=== PATIENT | female | born 1995 | race American Indian/Alaskan Native ===

== ENCOUNTER 2017-08-12 18:56 | Emergency (ER) | payer SELFPAY ==
[2017-08-12] MEDS ORDERED: MOTRIN ONE (19:35)
[2017-08-12] MEDS ORDERED: MOTRIN PO ONE (19:42)
[2017-08-12 21:26] LABS: Basophils % (Auto) 0.3 % (0.0-1.8); Hematocrit 29.2 % (30.3-42.9); Hemoglobin 9.2 gm/dl (10.1-14.3); Lymphocytes # (Auto) 1.3 K/mm3 (1.2-5.4); Lymphocytes % (Auto) 8.8 % (13.4-35.0); Mean Corpuscular HGB Conc 32 % (30-34); Mean Corpuscular Volume 74 fl (79-97); Monocytes # (Auto) 1.1 K/mm3 (0.0-0.8); Monocytes % (Auto) 7.8 % (0.0-7.3); Platelet Count 269 K/mm3 (140-440); Red Blood Count 3.93 M/mm3 (3.65-5.03)
[2017-08-12 21:33] LABS: BUN/Creatinine Ratio 12; Blood Urea Nitrogen 7 mg/dL (7-17); Calcium 8.7 mg/dL (8.4-10.2); Hemolysis Index 33
--- NOTE | 2017-08-12 21:37 | Emergency Department Report ---
ED Fever HPI - General Chief Complaint: Fever Stated Complaint: FEVER Time Seen by Provider: 08/12/17 20:02 Source: patient - History of Present Illness Initial Comments: This is a 21-year-old female with no prior medical condition who presents to ED complaining of fever and body aches for the past. Week. Patient states she fell and apparently today he has been taking TheraFlu with no relief. Patient states that she has loss of appetite does really eat as much pain she states last menstrual period was 07/23/2017. She denies vaginal discharge, vaginal bleed of any kind. Patient denies any sick contacts, cough, runny nose, throat pain, nausea vomiting, diarrhea, abdominal pain. Timing/Duration: week (1) Fever Therapy [employer]SOLE [employer]ACHINE: cold remedies, Tylenol Associated Symptoms: muscle aches. denies: abdominal pain, chest pain, confusion, cough, headache, nausea/vomiting, rash, stiff neck ED Review of Systems ROS: Stated complaint: FEVER Other details as noted in HPI Constitutional: denies: chills, fever Eyes: denies: eye pain, eye discharge, vision change ENT: denies: ear pain, throat pain Respiratory: denies: cough, shortness of breath, wheezing Cardiovascular: denies: chest pain, palpitations Endocrine: no symptoms reported Gastrointestinal: denies: abdominal pain, nausea, diarrhea Genitourinary: denies: urgency, dysuria, discharge Musculoskeletal: denies: back pain, joint swelling, arthralgia Skin: denies: rash, lesions Neurological: denies: headache, weakness, paresthesias Psychiatric: denies: anxiety, depression Hematological/Lymphatic: denies: easy bleeding, easy bruising ED Past Medical Hx - Past Medical History Previous Medical History?: No - Surgical History Past Surgical History?: Yes Additional Surgical History: c section - Social History Smoking Status: Current Every Day Smoker Substance Use Type: Marijuana - Medications Home Medications: Home Medications Medication Instructions Recorded Confirmed Last Taken Type Ibuprofen [Motrin] 800 mg PO Q8HR PRN #30 tablet 08/12/17 Unknown Rx ED Physical Exam - General Limitations: No Limitations General appearance: alert, in no apparent distress - Head Head exam: Present: atraumatic, normocephalic - Eye Eye exam: Present: normal appearance, PERRL - ENT ENT exam: Present: mucous membranes moist - Neck Neck exam: Present: normal inspection - Respiratory Respiratory exam: Present: normal lung sounds bilaterally. Absent: respiratory distress - Cardiovascular Cardiovascular Exam: Present: regular rate, normal rhythm. Absent: systolic murmur, diastolic murmur, rubs, gallop - GI/Abdominal GI/Abdominal exam: Present: soft, normal bowel sounds - Extremities Exam Extremities exam: Present: normal inspection - Back Exam Back exam: Present: normal inspection, full ROM - Neurological Exam Neurological exam: Present: alert, oriented X3 - Psychiatric Psychiatric exam: Present: normal affect, normal mood - Skin Skin exam: Present: warm, dry, intact, normal color. Absent: rash ED Course Vital Signs 08/12/17 08/12/17 19:29 19:37 Temperature 102.0 F H 102.0 F H Pulse Rate 122 H 122 H Respiratory 18 17 Rate Blood Pressure 122/65 122/65 O2 Sat by Pulse 100 100 Oximetry ED Medical Decision Making - Lab Data Result diagrams: 08/12/17 21:13 08/12/17 21:13 Laboratory Last Values WBC 14.2 K/mm3 (4.5-11.0) H 08/12/17 21:13 RBC 3.93 M/mm3 (3.65-5.03) 08/12/17 21:13 Hgb 9.2 gm/dl (10.1-14.3) L 08/12/17 21:13 Hct 29.2 % (30.3-42.9) L 08/12/17 21:13 MCV 74 fl (79-97) L 08/12/17 21:13 MCH 24 pg (28-32) L 08/12/17 21:13 MCHC 32 % (30-34) 08/12/17 21:13 RDW 21.4 % (13.2-15.2) H 08/12/17 21:13 Plt Count 269 K/mm3 (140-440) 08/12/17 21:13 Lymph % (Auto) 8.8 % (13.4-35.0) L 08/12/17 21:13 [place] % (Auto) 7.8 % (0.0-7.3) H 08/12/17 21:13 Eos % (Auto) 0.0 % (0.0-4.3) 08/12/17 21:13 Baso % (Auto) 0.3 % (0.0-1.8) 08/12/17 21:13 Lymph # 1.3 K/mm3 (1.2-5.4) 08/12/17 21:13 [place] # 1.1 K/mm3 (0.0-0.8) H 08/12/17 21:13 Eos # 0.0 K/mm3 (0.0-0.4) 08/12/17 21:13 Baso # 0.0 K/mm3 (0.0-0.1) 08/12/17 21:13 Seg Neutrophils % 83.1 % (40.0-70.0) H 08/12/17 21:13 Seg Neutrophils # 11.8 K/mm3 (1.8-7.7) H 08/12/17 21:13 Sodium 135 mmol/L (137-145) L 08/12/17 21:13 Potassium 3.3 mmol/L (3.6-5.0) L 08/12/17 21:13 Chloride 93.3 mmol/L (98-107) L 08/12/17 21:13 Carbon Dioxide 21 mmol/L (22-30) L 08/12/17 21:13 Anion Gap 24 mmol/L 08/12/17 21:13 BUN 7 mg/dL (7-17) 08/12/17 21:13 Creatinine 0.6 mg/dL (0.7-1.2) L 08/12/17 21:13 Estimated GFR > 60 ml/min 08/12/17 21:13 BUN/Creatinine Ratio 12 % 08/12/17 21:13 Glucose 102 mg/dL (65-100) H 08/12/17 21:13 Lactic Acid 0.90 mmol/L (0.7-2.0) 08/12/17 21:42 Calcium 8.7 mg/dL (8.4-10.2) 08/12/17 21:13 Urine Color Yellow (Yellow) 08/12/17 20:59 Urine Turbidity Clear (Clear) 08/12/17 20:59 Urine pH 5.0 (5.0-7.0) 08/12/17 20:59 Ur Specific [place] 1.032 (1.003-1.030) H 08/12/17 20:59 Urine Protein 30 mg/dl mg/dL (Negative) 02/25/18 20:59 Urine Glucose (UA) Neg mg/dL (Negative) 08/12/17 20:59 Urine Ketones Tr mg/dL (Negative) 08/12/17 20:59 Urine Blood Neg (Negative) 08/12/17 20:59 Urine Nitrite Neg (Negative) 08/12/17 20:59 Urine Bilirubin Neg (Negative) 08/12/17 20:59 Urine Urobilinogen 4.0 mg/dL (<2.0) 08/12/17 20:59 Ur Leukocyte Esterase Tr (Negative) 08/12/17 20:59 Urine WBC (Auto) 12.0 /HPF (0.0-6.0) H 08/12/17 20:59 Urine RBC (Auto) 10.0 /HPF (0.0-6.0) 08/12/17 20:59 U Epithel Cells (Auto) 28.0 /HPF (0-13.0) H 08/12/17 20:59 Urine Mucus 2+ /HPF 08/12/17 20:59 Urine HCG, Qual Negative (Negative) 08/12/17 20:59 - Radiology Data Radiology results: report reviewed, image reviewed FINAL REPORT PROCEDURE: XR CHEST ROUTINE 2V TECHNIQUE: PA and lateral chest radiographs were obtained. CPT 33871 HISTORY: fever/malaise COMPARISON: No prior studies are available for comparison. FINDINGS: Heart: Normal. Mediastinum/Vessels: Normal. Lungs/Pleural space: Normal. Bony thorax: No acute osseous abnormality. Other: IMPRESSION: Negative exam.. Transcribed By: DFN Dictated By: ROSEY WEBER MD Electronically Authenticated By: ROSEY WEBER MD Signed Date/Time: 08/12/171816 - Medical Decision Making 19-year-old female presents for fever of unknown region ED course: Patient received 1 L of fluids, Motrin in ED CBC, BMP, lactic acid, urine presents to test, urinalysis and chest x-ray ordered The elevated white count, BMP shows mild saturation was less right, urinalysis within normal limits, chest x-ray normal she reported blood I discussed result findings with patient. Patient states she knows she is anemic and was given iron prescriptions which she takes regularly. Fever reduced in ED. I discussed the patient to follow up with her primary care physician. I discussed the fashion that sometimes agitation can cause fever and elevated pulse rate. Vital signs are normal ,she is no acute distress, she is sitting comfortably in ED ,she has no neuro deficit, she is alert and oriented 3 Critical care attestation.: If time is entered above; I have spent that time in minutes in the direct care of this critically ill patient, excluding procedure time. ED Disposition Clinical Impression: Dehydration fever Anemia Qualifiers: Anemia type: iron deficiency Fever Qualifiers: Fever type: unspecified Qualified Code(s): R50.9 - Fever, unspecified Disposition: DC- TO HOME OR SELFCARE Is pt being admited?: No Does the pt Need Aspirin: No Condition: Stable Instructions: Fever in Adults (ED), Dehydration (ED) Additional Instructions: Make sure to follow up with the primary care physician as discussed. Take your medications as you've been prescribed. Continue to take your iron pills daily If you have any worsening symptoms or develop new symptoms please return to ED immediately. Prescriptions: Ibuprofen [Motrin] 800 mg PO Q8HR PRN #30 tablet PRN Reason: Pain Referrals: MARIANELA JENNINGS MD [Primary Care Provider] - 3-5 Days CONCHITA CHAVEZ MD [Referring] - 3-5 Days LIA TO MD [Referring] - 3-5 Days [facility] [Outside] - 3-5 Days [facility] [Outside] - 3-5 Days Forms: Work/School Release Form(ED) Time of Disposition: 22:34
[2017-08-12 21:42] LABS: Mean Corpuscular Hemoglobin 24 pg (28-32); Red Cell Distribution Width 21.4 % (13.2-15.2)
[2017-08-12 21:44] LABS: Bilirubin,Urine NEG (Negative); Blood,Urine NEG (Negative); Color,Urine Yellow (Yellow); Mucus,Urine 2+ /HPF
[2017-08-12 21:52] LABS: HCG Qualitative,Urine Negative (Negative)
[2017-08-12] MEDS ORDERED: NACL 0.9% 1000 ML 1,000 ML IV ONE (21:59)
--- NOTE | 2017-08-12 22:21 | XRay Report ---
FINAL REPORT PROCEDURE: XR CHEST ROUTINE 2V TECHNIQUE: PA and lateral chest radiographs were obtained. CPT 99919 HISTORY: fever/malaise COMPARISON: No prior studies are available for comparison. FINDINGS: Heart: Normal. Mediastinum/Vessels: Normal. Lungs/Pleural space: Normal. Bony thorax: No acute osseous abnormality. Other: IMPRESSION: Negative exam..
[2017-08-12 22:38] VITALS: BP 105/53
== END 2017-08-12 23:18 | disposition home or self-care (01) ==
LOC: ED 18:56
DX: E86.0 Dehydration (principal); D64.9 Anemia, unspecified; F17.200 Nicotine dependence, unspecified, uncomplicated; F12.10 Cannabis abuse, uncomplicated
CPT/HCPCS: 36415; 71046; 80048; 81001; 81025; 82140; 85025; 96360; 99284; J7030

== ENCOUNTER 2019-03-02 19:03 | Outpatient (CLI) | payer OTHER, MEDICAID ==
[2019-03-02 19:19] VITALS: BP 105/59
[2019-03-02] MEDS ORDERED: LACTATED RINGERS 1,000 ML IV ONE (20:03)
[2019-03-02] MEDS ORDERED: TYLENOL PO ONE (20:03)
--- NOTE | 2019-03-02 21:22 | Ultrasound Report ---
US OB limited INDICATION / CLINICAL INFORMATION: Rule out Abruption. Pelvic pain COMPARISON: None available. FINDINGS: Single intrauterine is seen in cephalic presentation. heart rate is 147.. There is a rate 1 posterior fundal placenta. IMPRESSION: 1. Single intrauterine in cephalic presentation with heart rate of 147. 2. Posterior fundal placenta appears unremarkable. Signer Name: Sebastian Singh MD Signed: 03/02/2019 9:18 PM Workstation Name: [id number]
== END 2019-03-02 22:20 | disposition short-term general hospital (02) ==
LOC: TRG 19:03
PROVIDERS: ATTEND Obstetrics & Gynecology
DX: O26.892 Other specified pregnancy related conditions, second trimester (principal); R10.31 Right lower quadrant pain; M54.9 Dorsalgia, unspecified; M25.522 Pain in left elbow; V49.9XXA Car occupant (driver) (passenger) injured in unspecified traffic accident, initial encounter; Z3A.22 22 weeks gestation of pregnancy; Z87.891 Personal history of nicotine dependence; Y93.89 Activity, other specified; Y92.89 Other specified places as the place of occurrence of the external cause; Y99.8 Other external cause status
CPT/HCPCS: 59025; 76815; 96360; J7120

== ENCOUNTER 2019-03-02 22:27 | Emergency (ER) | payer OTHER, MEDICAID ==
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
[2019-03-03 01:46] VITALS: BP 105/58
== END 2019-03-03 01:46 | disposition home or self-care (01) ==
LOC: ED 22:27
DX: O9A.212 Injury, poisoning and certain other consequences of external causes complicating pregnancy, second trimester (principal); S43.402A Unspecified sprain of left shoulder joint, initial encounter; S39.012A Strain of muscle, fascia and tendon of lower back, initial encounter; S16.1XXA Strain of muscle, fascia and tendon at neck level, initial encounter; S50.02XA Contusion of left elbow, initial encounter; Z3A.22 22 weeks gestation of pregnancy; V49.9XXA Car occupant (driver) (passenger) injured in unspecified traffic accident, initial encounter; Y93.89 Activity, other specified; Y92.410 Unspecified street and highway as the place of occurrence of the external cause; Y99.8 Other external cause status

== ENCOUNTER 2019-03-03 19:32 | Outpatient (CLI) | payer OTHER, MEDICAID ==
[2019-03-03] MEDS ORDERED: LACTATED RINGERS 1,000 ML IV ONE (19:56)
[2019-03-03 20:35] LABS: Bilirubin,Urine NEG (Negative); Blood,Urine NEG (Negative); Color,Urine Yellow (Yellow); Mucus,Urine FEW /HPF; Protein,Urine <15 mg/dL mg/dL (Negative); Urobilinogen,Urine < 2.0 mg/dL (<2.0); WBC,Urine < 1.0 /HPF (0.0-6.0)
[2019-03-03 20:46] LABS: Amphetamine Screen,Urine PRESUMPTIVE NEGATIVE; Benzodiazepines Screen,Urine PRESUMPTIVE NEGATIVE; Cannabinoid Screen,Urine PRESUMPTIVE NEGATIVE; Cocaine Screen,Urine PRESUMPTIVE NEGATIVE; Methadone Screen,Urine PRESUMPTIVE NEGATIVE; Opiate Screen,Urine PRESUMPTIVE NEGATIVE
[2019-03-03 20:53] VITALS: BP 101/58
== END 2019-03-03 21:08 | disposition home or self-care (01) ==
LOC: TRG 19:32
PROVIDERS: ATTEND Obstetrics & Gynecology
DX: O36.8120 Decreased fetal movements, second trimester, not applicable or unspecified (principal); Z3A.22 22 weeks gestation of pregnancy
CPT/HCPCS: 80307; 81001

== ENCOUNTER 2019-04-17 13:22 | Outpatient (CLI) | payer OTHER, MEDICAID ==
[2019-04-17 13:52] VITALS: BP 106/58
[2019-04-17] MEDS ORDERED: LACTATED RINGERS 1,000 ML IV SCH (14:00)
[2019-04-17 14:27] LABS: Bacteria,Urine 1+ /HPF (Negative); Mucus,Urine 2+ /HPF
[2019-04-17 14:28] LABS: Bilirubin,Urine NEG (Negative); Blood,Urine NEG (Negative); Color,Urine Yellow (Yellow)
== END 2019-04-17 16:40 | disposition home or self-care (01) ==
LOC: TRG 13:22
PROVIDERS: ATTEND Obstetrics & Gynecology
DX: O26.893 Other specified pregnancy related conditions, third trimester (principal); M54.5 Low back pain; O60.03 Preterm labor without delivery, third trimester; Z3A.29 29 weeks gestation of pregnancy
CPT/HCPCS: 59025; 81001; 96360; 96361; J7120

== ENCOUNTER 2020-05-01 09:42 | Emergency (ER) | payer MEDICAID, OTHER ==
[2020-05-01 09:56] VITALS: BP 121/71
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
== END 2020-05-01 12:30 | disposition left against medical advice (07) ==
LOC: ED 09:42
DX: M54.2 Cervicalgia (principal); Z53.21 Procedure and treatment not carried out due to patient leaving prior to being seen by health care provider

== ENCOUNTER 2020-07-17 00:34 | Emergency (ER) | payer MEDICAID ==
[2020-07-17] MEDS ORDERED: SODIUM CHLORIDE 0.9% 1000 ML 1,000 ML IV ONE (01:17)
[2020-07-17] MEDS ORDERED: ONDANSETRON 4 MG/2 ML INJ IV ONE (01:17)
[2020-07-17] MEDS ORDERED: FAMOTIDINE 20 MG/2 ML INJ IV ONE (01:17)
[2020-07-17] MEDS ORDERED: MORPHINE 2 MG/1 ML INJ IV ONE (01:18)
[2020-07-17] MEDS ORDERED: DICYCLOMINE 20 MG/2 ML INJ IM ONE (01:18)
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
[2020-07-17 02:37] LABS: Alanine Aminotransferase 13 units/L (7-56); Albumin 4.9 g/dL (3.9-5); Blood Urea Nitrogen 12 mg/dL (7-17); Calcium 10.4 mg/dL (8.4-10.2); Hemolysis Index 17
[2020-07-17 02:45] LABS: Hematocrit 42.4 % (30.3-42.9); Hemoglobin 14.5 gm/dl (10.1-14.3); Mean Corpuscular HGB Conc 34 % (30-34); Mean Corpuscular Volume 90 fl (79-97); Platelet Count 230 K/mm3 (140-440)
[2020-07-17 02:50] LABS: BUN/Creatinine Ratio 20
[2020-07-17 03:21] LABS: Bilirubin,Urine NEG (Negative); Blood,Urine LG (Negative); Color,Urine Yellow (Yellow); Mucus,Urine 1+ /HPF; Urobilinogen,Urine < 2.0 mg/dL (<2.0)
--- NOTE | 2020-07-17 03:55 | Cat Scan Report ---
CT OF THE ABDOMEN AND PELVIS WITH INTRAVENOUS CONTRAST INDICATION / CLINICAL INFORMATION: LLQ Abdominal pain; N/V/D. TECHNIQUE: The patient received 100 cc Omnipaque [address] scans at this location are performed using CT dose reduction for ALARA by means of automated exposure control. COMPARISON: None available. FINDINGS: ABDOMEN: There are a couple of small hepatic cysts. The spleen, gallbladder, bile ducts, pancreas, ad renal glands, kidneys and bowel demonstrate no significant abnormality. No adenopathy is seen. The smita ng bases are clear. PELVIS: There is a 2.5 cm simple cyst in the left ovary with a mild amount of free fluid in the cul-d e-sac. The uterus and right adnexa are normal. A normal appendix is present and there is no evidence of diverticulitis. There is mild diastases of the rectus sheath without focal hernia. No acute osseou s abnormality is identified. IMPRESSION: 2.5 cm left ovarian cyst and mild free fluid in the cul-de-sac are physiologic findings. Signer Name: Andrea Daniels MD Signed: 07/17/2020 3:51 AM Workstation Name: [id number]
[2020-07-17 04:19] LABS: Anisocytosis 1+; Platelet Estimate Consistent w Auto; Total Cells Counted 100
[2020-07-17 04:50] VITALS: BP 104/40
== END 2020-07-17 04:50 | disposition home or self-care (01) ==
LOC: ED 00:34
DX: N83.202 Unspecified ovarian cyst, left side (principal); A08.4 Viral intestinal infection, unspecified; R11.2 Nausea with vomiting, unspecified; R19.7 Diarrhea, unspecified; R10.32 Left lower quadrant pain; Z79.899 Other long term (current) drug therapy; Z98.890 Other specified postprocedural states
CPT/HCPCS: 36415; 74177; 80053; 81001; 83690; 84703; 85007; 85025; 96361; 96372; 96374; 96375; 99284; J0500; J2270; J2405; J7030; Q9967

== ENCOUNTER 2020-10-31 12:40 | Emergency (ER) | payer MEDICAID ==
[2020-10-31 13:12] VITALS: BP 131/93
--- NOTE | 2020-10-31 14:01 | Event Note ---
ED Screening Note ED Screening Note: diarrhea that began 4-5 days ago urinary frequency states she having diarrhea 3 times a day no blood or pus in the stool abd pain cramping states she ate kinyarwanda food no recent abx no water from different source, no camping went to [facility] october 21 pmhx low iron allergy none LNMP: began yesterday This initial assessment/diagnostic orders/clinical plan/treatment(s) is/are subject to change based on patients health status, clinical progression and re- assessment by fellow clinical providers in the ED. Further treatment and workup at subsequent clinical providers discretion. Patient/guardian urged not to elope from the ED as their condition may be serious if not clinically assessed and thalia alaniz. Initial orders include: labs, ua
[2020-10-31 14:35] LABS: Bacteria,Urine 1+ /HPF (Negative); Bilirubin,Urine NEG (Negative); Blood,Urine LG (Negative); Color,Urine Yellow (Yellow); Mucus,Urine 1+ /HPF; Urobilinogen,Urine < 2.0 mg/dL (<2.0)
[2020-10-31 14:40] LABS: Basophils % (Auto) 0.4 % (0.0-1.8); Eosinophils # (Auto) 0.1 K/mm3 (0.0-0.4); Eosinophils % (Auto) 1.1 % (0.0-4.3); Hematocrit 38.9 % (30.3-42.9); Hemoglobin 13.3 gm/dl (10.1-14.3); Lymphocytes # (Auto) 1.9 K/mm3 (1.2-5.4); Lymphocytes % (Auto) 22.2 % (13.4-35.0); Mean Corpuscular HGB Conc 34 % (30-34); Mean Corpuscular Volume 89 fl (79-97); Monocytes # (Auto) 0.5 K/mm3 (0.0-0.8); Monocytes % (Auto) 6.1 % (0.0-7.3); Platelet Count 223 K/mm3 (140-440); Red Blood Count 4.34 M/mm3 (3.65-5.03); Red Cell Distribution Width 13.9 % (13.2-15.2)
[2020-10-31 14:46] LABS: Alanine Aminotransferase 12 units/L (7-56); Albumin 4.4 g/dL (3.9-5); Blood Urea Nitrogen 8 mg/dL (7-17); Calcium 9.3 mg/dL (8.4-10.2); Hemolysis Index 0
[2020-10-31 14:54] LABS: BUN/Creatinine Ratio 11
--- NOTE | 2020-10-31 15:08 | Emergency Department Report ---
ED General Adult HPI - General Chief complaint: Abdominal Pain Stated complaint: DEHYDRATED/DIAHERRA/VOMITTING Time Seen by Provider: 10/31/20 13:59 Source: patient Mode of arrival: Ambulatory Limitations: No Limitations - History of Present Illness Initial comments: Patient is a 24-year-old female presents emergency room with complaints of diarrhea that began 4-5 days ago She has associated urinary frequency She states she having diarrhea 3 times a day no blood or pus in the stool She reports that she has abd cramping but no significant pain states she ate russian food before symptoms began no recent abx no water from different source, no camping went to [facility] october 21 pmhx low iron allergy none LNMP: began yesterday - Related Data Home Medications Medication Instructions Recorded Confirmed Last Taken Ferrous Sulfate 1 tab PO TID 03/02/19 03/03/19 03/03/19 Vitamin 1 tab PO DAILY 03/02/19 03/03/19 03/03/19 Previous Rx's Medication Instructions Recorded Last Taken Type Famotidine [Pepcid] 20 mg PO BID #30 tablet 07/17/20 Unknown Rx Naproxen 500 mg PO Q12H PRN #30 tablet 07/17/20 Unknown Rx Ondansetron [Zofran Odt] 4 mg PO Q6HR PRN #20 tab.rapdis 07/17/20 Unknown Rx traMADoL [Ultram] 50 mg PO Q6HR PRN #12 tablet 07/17/20 Unknown Rx Hyoscyamine Subl [Levsin Sl 0.125 0.125 mg SL Q6HR PRN #10 tab 10/31/20 Unknown Rx TAB] cephALEXin [Keflex] 500 mg PO BID 7 Days #14 capsule 10/31/20 Unknown Rx Allergies Allergy/AdvReac Type Severity Reaction Status Date / Time No Known Allergies Allergy Verified 10/24/18 13:55 ED Review of Systems ROS: Stated complaint: DEHYDRATED/DIAHERRA/VOMITTING Other details as noted in HPI Comment: All other systems reviewed and negative ED Past Medical Hx - Past Medical History Previous Medical History?: No Hx Hypertension: No Hx Diabetes: No Hx Deep Vein Thrombosis: No Hx Renal Disease: No Hx Sickle Cell Disease: No Hx Seizures: No Hx Asthma: No Hx HIV: No - Surgical History Past Surgical History?: Yes Additional Surgical History: c section. wisdom tooth removal - Social History Smoking Status: Never Smoker Substance Use Type: Alcohol - Medications Home Medications: Home Medications Medication Instructions Recorded Confirmed Last Taken Type Ferrous Sulfate 1 tab PO TID 03/02/19 03/03/19 03/03/19 History Vitamin 1 tab PO DAILY 03/02/19 03/03/19 03/03/19 History Famotidine [Pepcid] 20 mg PO BID #30 tablet 07/17/20 Unknown Rx Naproxen 500 mg PO Q12H PRN #30 tablet 07/17/20 Unknown Rx Ondansetron [Zofran Odt] 4 mg PO Q6HR PRN #20 tab.rapdis 07/17/20 Unknown Rx traMADoL [Ultram] 50 mg PO Q6HR PRN #12 tablet 07/17/20 Unknown Rx Hyoscyamine Subl [Levsin Sl 0.125 0.125 mg SL Q6HR PRN #10 tab 10/31/20 Unknown Rx TAB] cephALEXin [Keflex] 500 mg PO BID 7 Days #14 capsule 10/31/20 Unknown Rx ED Physical Exam - General Limitations: No Limitations General appearance: alert, in no apparent distress - Head Head exam: Present: atraumatic, normocephalic - Eye Eye exam: Present: normal appearance - ENT ENT exam: Present: mucous membranes moist - Respiratory Respiratory exam: Present: normal lung sounds bilaterally. Absent: respiratory distress, wheezes, rales, rhonchi, stridor, chest wall tenderness, accessory muscle use, decreased breath sounds, prolonged expiratory - Cardiovascular Cardiovascular Exam: Present: regular rate, normal rhythm, normal heart sounds. Absent: systolic murmur, diastolic murmur, rubs, gallop - GI/Abdominal GI/Abdominal exam: Present: soft, normal bowel sounds. Absent: distended, tenderness, guarding, rebound, rigid - Neurological Exam Neurological exam: Present: alert, oriented X3 - Psychiatric Psychiatric exam: Present: normal affect, normal mood - Skin Skin exam: Present: warm, dry, intact ED Course Vital Signs 10/31/20 10/31/20 13:05 16:00 Temperature 98.6 F Pulse Rate 75 Respiratory 18 18 Rate Blood Pressure 131/93 O2 Sat by Pulse 96 96 Oximetry ED Medical Decision Making - Lab Data Result diagrams: 10/31/20 14:14 10/31/20 14:14 Lab Results 10/31/20 10/31/20 10/31/20 Range/Units 14:14 14:14 14:14 WBC 8.5 (4.5-11.0) K/mm3 RBC 4.34 (3.65-5.03) M/mm3 Hgb 13.3 (10.1-14.3) gm/dl Hct 38.9 (30.3-42.9) % MCV 89 (79-97) fl MCH 31 (28-32) pg MCHC 34 (30-34) % RDW 13.9 (13.2-15.2) % Plt Count 223 (140-440) K/mm3 Lymph % (Auto) 22.2 (13.4-35.0) % [place] % (Auto) 6.1 (0.0-7.3) % Eos % (Auto) 1.1 (0.0-4.3) % Baso % (Auto) 0.4 (0.0-1.8) % Lymph # (Auto) 1.9 (1.2-5.4) K/mm3 [place] # (Auto) 0.5 (0.0-0.8) K/mm3 Eos # (Auto) 0.1 (0.0-0.4) K/mm3 Baso # (Auto) 0.0 (0.0-0.1) K/mm3 Seg Neutrophils % 70.2 H (40.0-70.0) % Seg Neutrophils # 6.0 (1.8-7.7) K/mm3 Sodium 138 (137-145) mmol/L Potassium 4.3 (3.6-5.0) mmol/L Chloride 101.6 (98-107) mmol/L Carbon Dioxide 24 (22-30) mmol/L Anion Gap 17 mmol/L BUN 8 (7-17) mg/dL Creatinine 0.7 (0.6-1.2) mg/dL Estimated GFR > 60 ml/min BUN/Creatinine Ratio 11 % Glucose 74 (65-100) mg/dL Calcium 9.3 (8.4-10.2) mg/dL Total Bilirubin 0.30 (0.1-1.2) mg/dL AST 14 (5-40) units/L ALT 12 (7-56) units/L Alkaline Phosphatase 53 (35-129) units/L Total Protein 7.5 (6.3-8.2) g/dL Albumin 4.4 (3.9-5) g/dL Albumin/Globulin Ratio 1.4 % Lipase 18 (13-60) units/L HCG, Qual Negative (Negative) Urine Color (Yellow) Urine Turbidity (Clear) Urine pH (5.0-7.0) Ur Specific [place] (1.003-1.030) Urine Protein (Negative) mg/dL Urine Glucose (UA) (Negative) mg/dL Urine Ketones (Negative) mg/dL Urine Blood (Negative) Urine Nitrite (Negative) Urine Bilirubin (Negative) Urine Urobilinogen (<2.0) mg/dL Ur Leukocyte Esterase (Negative) Urine WBC (Auto) (0.0-6.0) /HPF Urine RBC (Auto) (0.0-6.0) /HPF U Epithel Cells (Auto) (0-13.0) /HPF Urine Bacteria (Auto) (Negative) /HPF Urine Mucus /HPF 10/31/20 Range/Units Unknown WBC (4.5-11.0) K/mm3 RBC (3.65-5.03) M/mm3 Hgb (10.1-14.3) gm/dl Hct (30.3-42.9) % MCV (79-97) fl MCH (28-32) pg MCHC (30-34) % RDW (13.2-15.2) % Plt Count (140-440) K/mm3 Lymph % (Auto) (13.4-35.0) % [place] % (Auto) (0.0-7.3) % Eos % (Auto) (0.0-4.3) % Baso % (Auto) (0.0-1.8) % Lymph # (Auto) (1.2-5.4) K/mm3 [place] # (Auto) (0.0-0.8) K/mm3 Eos # (Auto) (0.0-0.4) K/mm3 Baso # (Auto) (0.0-0.1) K/mm3 Seg Neutrophils % (40.0-70.0) % Seg Neutrophils # (1.8-7.7) K/mm3 Sodium (137-145) mmol/L Potassium (3.6-5.0) mmol/L Chloride (98-107) mmol/L Carbon Dioxide (22-30) mmol/L Anion Gap mmol/L BUN (7-17) mg/dL Creatinine (0.6-1.2) mg/dL Estimated GFR ml/min BUN/Creatinine Ratio % Glucose (65-100) mg/dL Calcium (8.4-10.2) mg/dL Total Bilirubin (0.1-1.2) mg/dL AST (5-40) units/L ALT (7-56) units/L Alkaline Phosphatase (35-129) units/L Total Protein (6.3-8.2) g/dL Albumin (3.9-5) g/dL Albumin/Globulin Ratio % Lipase (13-60) units/L HCG, Qual (Negative) Urine Color Yellow (Yellow) Urine Turbidity Slightly-cloudy (Clear) Urine pH 5.0 (5.0-7.0) Ur Specific [place] 1.018 (1.003-1.030) Urine Protein 100 mg/dl (Negative) mg/dL Urine Glucose (UA) Neg (Negative) mg/dL Urine Ketones Tr (Negative) mg/dL Urine Blood Lg (Negative) Urine Nitrite Neg (Negative) Urine Bilirubin Neg (Negative) Urine Urobilinogen < 2.0 (<2.0) mg/dL Ur Leukocyte Esterase Mod (Negative) Urine WBC (Auto) 123.0 H (0.0-6.0) /HPF Urine RBC (Auto) 24.0 (0.0-6.0) /HPF U Epithel Cells (Auto) 10.0 (0-13.0) /HPF Urine Bacteria (Auto) 1+ (Negative) /HPF Urine Mucus 1+ /HPF - Medical Decision Making Patient is a 24-year-old female presents emergency room with complaints of diarrhea that began 4-5 days ago She has associated urinary frequency She states she having diarrhea 3 times a day no blood or pus in the stool She reports that she has abd cramping but no significant pain states she ate russian food before symptoms began no recent abx no water from different source, no camping went to [facility] october 21 pmhx low iron allergy none LNMP: began yesterday Vitals are stable. Patient is tolerating p.o. intake. Patient has no vomiting in the emergency room. Patient has no abdominal tenderness on exam, no guarding, no rebound, no rigidity, no bowel sounds, no peritoneal signs. Labs are normal. UA shows evidence of UTI. Patient given prescription for Keflex and Levsin. Advised patient Please take medication as prescribed. Increase your water intake. Eat a bland liquid diet and slowly advance your diet as tolerated. Follow-up with your primary care doctor for reexamination and to h ave your urine retested for clearance of bacteria. Return to emergency room for any worsening symptoms. Critical care attestation.: If time is entered above; I have spent that time in minutes in the direct care of this critically ill patient, excluding procedure time. ED Disposition Clinical Impression: Abdominal cramping UTI (urinary tract infection) Qualifiers: Urinary tract infection type: acute cystitis Hematuria presence: without hematuria Qualified Code(s): N30.00 - Acute cystitis without hematuria Diarrhea Qualifiers: Diarrhea type: unspecified type Qualified Code(s): R19.7 - Diarrhea, unspecified Disposition: TO HOME OR SELFCARE Is pt being admited?: No Does the pt Need Aspirin: No Condition: Stable Instructions: Urinary Tract Infection, Adult, Diarrhea, Adult, [id number], Abdominal Pain (ED) Additional Instructions: Please take medication as prescribed. Increase your water intake. Eat a bland liquid diet and slowly advance your diet as tolerated. Follow-up with your primary care doctor for reexamination and to have your urine retested for clearance of bacteria. Return to emergency room for any worsening symptoms. Prescriptions: cephALEXin [Keflex] 500 mg PO BID 7 Days #14 capsule Hyoscyamine Subl [Levsin Sl 0.125 TAB] 0.125 mg SL Q6HR PRN #10 tab PRN Reason: abd cramping/diarrhea Referrals: MARTY GUTIERREZ MD [Primary Care Provider] - 2-3 Days MOUSTAPHA EVANS MD [Staff Physician] - 2-3 Days [facility] [Provider Group] - 2-3 Days Time of Disposition: 15:06 Print Language: TURKMEN
== END 2020-10-31 16:02 | disposition home or self-care (01) ==
LOC: ED 12:40
DX: N39.0 Urinary tract infection, site not specified (principal); R19.7 Diarrhea, unspecified; R10.9 Unspecified abdominal pain; Z98.890 Other specified postprocedural states; Z79.899 Other long term (current) drug therapy
CPT/HCPCS: 36415; 80053; 81001; 83690; 84703; 85025; 87086

== ENCOUNTER 2021-03-30 16:38 | Emergency (ER) | payer MEDICAID, OTHER ==
[2021-03-30] MEDS ORDERED: ONDANSETRON 4 MG/2 ML INJ IV ONE (18:30)
[2021-03-30] MEDS ORDERED: SODIUM CHLORIDE 0.9% 1000 ML 1,000 ML IV ONE (18:30)
--- NOTE | 2021-03-30 18:31 | Emergency Department Report ---
ED N/V/D HPI - General Chief complaint: Nausea/Vomiting/Diarrhea Stated complaint: VOMITING BACK AND HIP PAIN WEAK Time Seen by Provider: 03/30/21 18:20 Source: patient Mode of arrival: Ambulatory Limitations: No Limitations - History of Present Illness Initial comments: 25-year-old female presents to the ER today with complaints of nausea vomiting and diarrhea. Patient states that symptoms started last night. Patient reports vomiting, diarrhea, lower abdominal pain and lower back pain as well as headache since last night. She denies any fever or chills. She denies any UTI symptoms. She denies any ill contacts or recent travel. She denies any bad food intake, or recent antibiotic use. States that she smokes marijuana but denies any other illicit drug use. She denies alcohol abuse. He states that her last menstrual cycle was towards the end of February but she did spot for a few days after her last period. She did not take any home test. MD complaint: nausea, vomiting, diarrhea, abdominal pain -: Last night - Related Data Previous Rx's Medication Instructions Recorded Last Taken Type Dicyclomine [Bentyl] 10 mg PO QID PRN #40 capsule 03/30/21 Unknown Rx Ibuprofen [Motrin] 600 mg PO Q8H PRN #30 tablet 03/30/21 Unknown Rx Ondansetron [Zofran Odt] 4 mg PO Q8HR PRN #12 tab.rapdis 03/30/21 Unknown Rx Allergies Allergy/AdvReac Type Severity Reaction Status Date / Time tree nut AdvReac Severe Anaphylaxis Verified 03/30/21 20:37 ED Review of Systems ROS: Stated complaint: VOMITING BACK AND HIP PAIN WEAK Other details as noted in HPI Comment: All other systems reviewed and negative Constitutional: no symptoms reported Eyes: denies: eye pain, eye discharge, vision change ENT: denies: ear pain, throat pain Respiratory: denies: cough, shortness of breath, SOB with exertion, SOB at rest, wheezing Gastrointestinal: abdominal pain, nausea, vomiting, diarrhea Genitourinary: denies: urgency, dysuria, frequency, hematuria, discharge, abnormal menses, dyspareunia Musculoskeletal: back pain Skin: denies: rash, lesions, change in color, change in hair/nails, pruritus Neurological: denies: headache, weakness, numbness, paresthesias, confusion, abnormal gait, vertigo Psychiatric: denies: anxiety, depression, auditory hallucinations, visual hallucinations, homicidal thoughts, suicidal thoughts Hematological/Lymphatic: denies: easy bleeding, easy bruising, swollen glands ED Past Medical Hx - Past Medical History Hx Hypertension: No Hx Diabetes: No Hx Deep Vein Thrombosis: No Hx Renal Disease: No Hx Sickle Cell Disease: No Hx Seizures: No Hx Asthma: No Hx HIV: No - Surgical History Additional Surgical History: c section. wisdom tooth removal - Social History Smoking Status: Smoker, Current Status Unknown Substance Use Type: None - Medications Home Medications: Home Medications Medication Instructions Recorded Confirmed Last Taken Type Dicyclomine [Bentyl] 10 mg PO QID PRN #40 capsule 03/30/21 Unknown Rx Ibuprofen [Motrin] 600 mg PO Q8H PRN #30 tablet 03/30/21 Unknown Rx Ondansetron [Zofran Odt] 4 mg PO Q8HR PRN #12 tab.rapdis 03/30/21 Unknown Rx ED Physical Exam - General Limitations: No Limitations General appearance: alert, in no apparent distress - Head Head exam: Present: atraumatic, normocephalic, normal inspection - Eye Eye exam: Present: normal appearance, PERRL, EOMI Pupils: Present: normal accommodation - ENT ENT exam: Present: normal exam, mucous membranes moist, TM's normal bilaterally - Neck Neck exam: Present: normal inspection, full ROM - Respiratory Respiratory exam: Present: normal lung sounds bilaterally - Cardiovascular Cardiovascular Exam: Present: regular rate, normal rhythm, normal heart sounds - GI/Abdominal GI/Abdominal exam: Present: soft, tenderness (Diffuse lower abdominal tenderness with some mild guarding with palpation to the right lower quadrant and suprapubic area). Absent: distended - Back Exam Back exam: Present: normal inspection, full ROM, CVA tenderness (R) (mild ) - Neurological Exam Neurological exam: Present: alert, oriented X3, CN II-XII intact, normal gait - Psychiatric Psychiatric exam: Present: normal affect, normal mood - Skin Skin exam: Present: intact ED Course Vital Signs 03/30/21 03/30/21 03/30/21 16:51 17:27 20:40 Temperature 98.3 F 98.0 F Pulse Rate 99 H 88 81 Respiratory 18 16 16 Rate Blood Pressure 125/76 126/88 Blood Pressure 116/66 [Left] O2 Sat by Pulse 98 100 98 Oximetry 10/13/21 20:42 Temperature Pulse Rate Respiratory 16 Rate Blood Pressure Blood Pressure [Left] O2 Sat by Pulse 97 Oximetry ED Medical Decision Making - Lab Data Result diagrams: 03/30/21 18:45 03/30/21 18:45 - Radiology Data Radiology results: report reviewed Patient: CHAD BUTCHER MR#: [id number] : 1995 Acct:[id number] Age/Sex: 25 / F ADM Date: 03/30/21 Loc: ED Attending Dr: Ordering Physician: SUE HUMMEL Date of Service: 03/30/21 Procedure(s): CT abdomen pelvis w con Accession Number(s): [id number] cc: SUE HUMMEL CT ABDOMEN AND PELVIS WITH CONTRAST INDICATION / CLINICAL INFORMATION: Lower abdominal pain. TECHNIQUE: Axial CT images were obtained through the abdomen and pelvis after 100 mL's of Omnipaque [address] scans at this location are performed using CT dose reduction for ALARA by means of automated exposure control. COMPARISON: 07/17/2020 FINDINGS: LOWER CHEST: No significant abnormality. AORTA / ARTERIES: No significant abnormality. IVC / VEINS: No significant abnormality. LYMPH NODES: No significant adenopathy. COLON: No significant abnormality. APPENDIX: No significant abnormality. STOMACH / SMALL BOWEL: No significant abnormality. PERITONEUM: No free fluid. No free air. No fluid collection. LIVER: Several subcentimeter hypoattenuating lesions within the liver suggesting hepatic cysts. GALLBLADDER: No significant abnormality. BILE DUCTS: No significant abnormality. PANCREAS: No significant abnormality. SPLEEN: No significant abnormality. ADRENALS: No significant abnormality. RIGHT KIDNEY / URETER: No significant abnormality. LEFT KIDNEY / URETER: No significant abnormality. URINARY BLADDER: No significant abnormality. REPRODUCTIVE ORGANS: No significant abnormality. SKELETAL SYSTEM: No significant abnormality. ADDITIONAL FINDINGS: None. IMPRESSION: 1. No acute intra-abdominal or pelvic pathology. 2. Other findings as above Signer Name: Alan Godinez DO Signed: 03/30/2021 9:53 PM Workstation Name: [id number] Transcribed By: ANDREEA Dictated By: ALAN GODINEZ DO Electronically Authenticated By: ALAN GODINEZ DO Signed Date/Time: 03/30/212152 DD/ 47 TD/TT: - Medical Decision Making 25-year-old female presents to the ER today with complaints of nausea vomiting and diarrhea. Patient states that symptoms started last night. Patient reports vomiting, diarrhea, lower abdominal pain and lower back pain as well as headache since last night. She denies any fever or chills. She denies any UTI symptoms. She denies any ill contacts or recent travel. She denies any bad food intake, or recent antibiotic use. States that she smokes marijuana but denies any other illicit drug use. She denies alcohol abuse. He states that her last menstrual cycle was towards the end of February but she did spot for a few days after her last period. She did not take any home test. 2223: CT abdomen pelvis shows nothing acute. All labs reviewed including urinalysis and all unremarkable. Patient currently resting comfortably, she is currently talking on her phone, and she does not appear to be in any acute distress and she appears to be feeling better. She has not had any further vomiting or diarrhea during stay. She does not appear toxic or ill-appearing. Discussed all lab results including imaging results with patient. Her symptoms could be viral related at this time. There is no indication for any additional testing, ED treatment, admission or surgical consultation at this time. Discussed suspected diagnosis and treatment plan with patient. Patient expressed understanding of all instructions and agree with plan. Patient stable at time of discharge. - Differential Diagnosis , gastroenteritis, appendicitis, diverticulitis, pyelonephritis Critical care attestation.: If time is entered above; I have spent that time in minutes in the direct care of this critically ill patient, excluding procedure time. ED Disposition Clinical Impression: Gastroenteritis, Back pain Disposition: 01 HOME / SELF CARE / HOMELESS Is pt being admited?: No Does the pt Need Aspirin: No Condition: Stable Instructions: Viral Gastroenteritis, Adult, [id number], Acute Back Pain, Adult Additional Instructions: I recommend that you take the Zofran as prescribed to help with any nausea vomiting and take the Bentyl as prescribed to help with any abdominal cramping. If your diarrhea continues you can take Imodium [id number]. You can also take the ibuprofen as prescribed to help with pain including your back pain. Drink lots of fluids. Follow-up closely with PCP listed on your discharge instructions. Return to the ER if your symptoms changes or worsens in any way. Prescriptions: Dicyclomine [Bentyl] 10 mg PO QID PRN #40 capsule PRN Reason: Abdominal cramps Ibuprofen [Motrin] 600 mg PO Q8H PRN #30 tablet PRN Reason: Pain Ondansetron [Zofran Odt] 4 mg PO Q8HR PRN #12 tab.rapdis PRN Reason: nausea/vomiting Referrals: PRIMARY CAREMD [Referring] - 3-5 Days MOUSTAPHA EVANS MD [Staff Physician] - 3-5 Days ANGLE MERRILL MD [Staff Physician] - 3-5 Days Forms: Work/School Release Form(ED) Time of Disposition: 22:16
[2021-03-30 19:19] LABS: Alanine Aminotransferase 9 units/L (7-56); Albumin 4.3 g/dL (3.9-5); BUN/Creatinine Ratio 15; Blood Urea Nitrogen 9 mg/dL (7-17); Calcium 9.5 mg/dL (8.4-10.2); Hemolysis Index 40
[2021-03-30 19:23] LABS: Basophils % (Auto) 0.2 % (0.0-1.8); Eosinophils % (Auto) 0.3 % (0.0-4.3); Hematocrit 37.7 % (30.3-42.9); Hemoglobin 12.8 gm/dl (10.1-14.3); Lymphocytes % (Auto) 12.5 % (13.4-35.0); Mean Corpuscular HGB Conc 34 % (30-34); Mean Corpuscular Volume 93 fl (79-97); Monocytes # (Auto) 0.4 K/mm3 (0.0-0.8); Monocytes % (Auto) 5.4 % (0.0-7.3); Platelet Count 237 K/mm3 (140-440); Red Blood Count 4.07 M/mm3 (3.65-5.03); Red Cell Distribution Width 13.5 % (13.2-15.2)
[2021-03-30 20:50] LABS: Bacteria,Urine 1+ /HPF (Negative); Bilirubin,Urine NEG (Negative); Blood,Urine NEG (Negative); Color,Urine Yellow (Yellow); Mucus,Urine FEW /HPF; Protein,Urine <15 mg/dL mg/dL (Negative)
--- NOTE | 2021-03-30 21:57 | Cat Scan Report ---
CT ABDOMEN AND PELVIS WITH CONTRAST INDICATION / CLINICAL INFORMATION: Lower abdominal pain. TECHNIQUE: Axial CT images were obtained through the abdomen and pelvis after 100 mL's of Omnipaque [address] scans at this location are performed using CT dose reduction for SERG zavala of automated exposure control. COMPARISON: 07/17/2020 FINDINGS: LOWER CHEST: No significant abnormality. AORTA / ARTERIES: No significant abnormality. IVC / VEINS: No significant abnormality. LYMPH NODES: No significant adenopathy. COLON: No significant abnormality. APPENDIX: No significant abnormality. STOMACH / SMALL BOWEL: No significant abnormality. PERITONEUM: No free fluid. No free air. No fluid collection. LIVER: Several subcentimeter hypoattenuating lesions within the liver suggesting hepatic cysts. GALLBLADDER: No significant abnormality. BILE DUCTS: No significant abnormality. PANCREAS: No significant abnormality. SPLEEN: No significant abnormality. ADRENALS: No significant abnormality. RIGHT KIDNEY / URETER: No significant abnormality. LEFT KIDNEY / URETER: No significant abnormality. URINARY BLADDER: No significant abnormality. REPRODUCTIVE ORGANS: No significant abnormality. SKELETAL SYSTEM: No significant abnormality. ADDITIONAL FINDINGS: None. IMPRESSION: 1. No acute intra-abdominal or pelvic pathology. 2. Other findings as above Signer Name: Alan Foy DO Signed: 03/30/2021 9:53 PM Workstation Name: [id number]
[2021-03-30 22:35] VITALS: BP 117/71
== END 2021-03-30 22:35 | disposition home or self-care (01) ==
LOC: ED 16:38
DX: K52.9 Noninfective gastroenteritis and colitis, unspecified (principal); M54.9 Dorsalgia, unspecified; Z98.890 Other specified postprocedural states; F17.200 Nicotine dependence, unspecified, uncomplicated; Z91.018 Allergy to other foods
CPT/HCPCS: 36415; 74177; 80053; 81001; 83690; 83735; 84703; 85025; 96361; 96374; 99284; J2405; J7030; Q9967